=== PATIENT | female | born 1950 | race Caucasian/White ===

== ENCOUNTER 2019-04-06 11:11 | Emergency (ER) | payer OTHER, MEDICAID ==
[~2019-04-06] VITALS: Ht 157.5 cm; Wt 56.7 kg
[~2019-04-06 11:11] MED LIST: AMLO5TAB15 PO; ATEN50TA PO; BECL0.07 IN; CALC-317 PO; CHOL20007 PO; FERR-20 PO; GABA300C10 PO; PANT40TA2 PO; PERCOT PO; POTA10TA51 PO; VENL150C58 PO; VENL75CA3 PO
[2019-04-06] MEDS ORDERED: SODIUM CHLORIDE 0.9% 1,000 ML IV ONE ×2 (12:03→15:15)
[2019-04-06 12:54] LABS: Basophils # (auto) 0 uL; Basophils % (auto) 0.7 % (0.0-2.0); Eosinophils # (auto) 0 uL; Eosinophils % (auto) 0.1 % (0.0-7.0); Hematocrit 45.2 % (36.0-46.0); Hemoglobin 15.1 g/dL (12.2-16.2); Lymphocytes # (auto) 1.2 uL; Lymphocytes % (auto) 17.6 % (10.0-50.0); Mean Corpuscular Hemoglobin 31.6 pg (28.0-32.0); Mean Corpuscular Hgb Conc. 33.3 g/dL (32.0-36.0); Mean Corpuscular Volume 94.9 fL (80.0-100.0); Monocytes # (auto) 0.6 uL; Monocytes % (auto) 8.8 % (0.0-12.0); Neutrophils # (auto) 5.1 uL; Neutrophils % (auto) 72.8 % (37.0-80.0); Nucleated Red Blood Cells % 0.1 %; Platelet Count (auto) 216 10^3/uL (140-450); Red Blood Cells 4.77 10^6/uL (4.0-5.20); Red Cell Distribution Width 13.7 % (11.8-14.3)
[2019-04-06 14:44] LABS: Urine Bacteria NONE SEEN /hpf (None Seen); Urine Blood Negative /uL (Negative); Urine Specific Gravity 1.018 (1.001-1.035); Urine WBC 2 /hpf (0 - 5)
[2019-04-06 14:56] LABS: Calcium 8.5 mg/dL (8.5-10.1)
[2019-04-06 14:59] LABS: Alcohol, Urine < 3.0 mg/dL (0-5); Amphetamine Screen, Urine NEGATIVE (NEGATIVE); Barbiturate Scree,Urine NEGATIVE (NEGATIVE); Benzodiazephine Screen, Urine NEGATIVE (NEGATIVE); Cannabinoid Screen, Urine NEGATIVE (NEGATIVE); Cocaine Screen, Urine NEGATIVE (NEGATIVE); Opiate Scree,Urine NEGATIVE (NEGATIVE); Phencyclidine Screen, Urine NEGATIVE (NEGATIVE)
[2019-04-06 15:04] LABS: Albumin 3.3 g/dL (3.4-5.0); Total Protein 7.3 g/dL (6.4-8.2)
[2019-04-06 15:10] LABS: Potassium 2.6 mmol/L (3.5-5.1)
[2019-04-06 15:12] LABS: Anion Gap 10.3 (5-15)
[2019-04-06] MEDS ORDERED: POTASSIUM CHL 20 Meq TABLET PO ONE (15:15)
[2019-04-06] MEDS: POTASSIUM CHL 20MEQ/100ML 100 ML IV SCH ×2 (16:05→18:13)
[2019-04-06] MEDS ORDERED: POTASSIUM CHL 20MEQ/100ML 100 ML IV ONE (16:15)
[2019-04-06] MEDS ORDERED: CAR25T PO (16:28)
[2019-04-06] MEDS ORDERED: PANTOPRAZOLE 40 MG TAB PO SCH (17:00)
[2019-04-06] MEDS ORDERED: CALCIUM W/VIT D (600MG/400IU) TAB PO SCH (18:00)
[2019-04-06] MEDS ORDERED: FERROUS SULFATE 325 MG TAB PO SCH (18:00)
[2019-04-06 19:06] VITALS: BP 158/67
[2019-04-06] MEDS ORDERED: BECLOMETHASONE DIPROPIONATE 40 MCG IN SCH (22:00)
[2019-04-07] MEDS ORDERED: ATENOLOL 50 MG TAB PO SCH (10:00)
[2019-04-07] MEDS ORDERED: VENLAFAXINE HCL 37.5mg XR cap PO SCH (10:00)
[2019-04-07] MEDS ORDERED: CHOLECALCIFEROL (VITD3) 1,000IU=25mCg TAB PO SCH (10:00)
[2019-04-07] MEDS ORDERED: amLODIPine BESYLATE 5 MG TAB PO SCH (10:00)
--- NOTE | 2019-04-07 12:22 | NUR ---
Discharge planning per consult, patient has orders for Sukhdeep to arrange for SNF placement. Referral faxed to [facility] [phone]. Will follow up this afternoon on placement. Addendum: 04/09/19 at 1329 by HIMA KENNEDY Patient was accepted to [facility] [phone] into room [address] Ximena Downs.
== END 2019-04-06 19:08 | disposition home or self-care (01) ==
LOC: ER 11:11
DX: E87.6 Hypokalemia (principal); E86.0 Dehydration; R53.1 Weakness; R30.0 Dysuria; J45.909 Unspecified asthma, uncomplicated; E11.9 Type 2 diabetes mellitus without complications; K21.9 Gastro-esophageal reflux disease without esophagitis; E78.5 Hyperlipidemia, unspecified; I10 Essential (primary) hypertension; Z88.8 Allergy status to other drugs, medicaments and biological substances
CPT/HCPCS: 36415; 70450; 71045; 72131; 80053; 80307; 81001; 84132; 84484; 85025; 96361; 96365; 96366; 99285; J3480

== ENCOUNTER 2024-02-13 17:05 | Emergency (ER) | payer OTHER, MEDICAID ==
[~2024-02-13] VITALS: Ht 152.4 cm; Wt 45.5 kg
[~2024-02-13 17:05] MED LIST changes: +AMLO1TAB22 PO; -AMLO5TAB15 PO; +CAR25T PO; -FERR-20 PO; +FERR325T24 PO; +GABA-1250 PO; -GABA300C10 PO; +POTA-36 PO; -POTA10TA51 PO
--- NOTE | 2024-02-13 17:24 | ED.PDOC ---
History of Present Illness HPI Comments 73 y.o female with PMH of Parkinson's disease, presents to the ED via EMS for a chief complaint of generalized weakness x 1 month with new onset diffused abdominal pain x 1 day. Patient reports missing PCP appointment recently, states her Tremors have worsened since weakness presented and was advised to come into the hospital when trying to reschedule PCP's appointment. Patient denies any nausea, vomiting, diarrhea, fever or chills. Vital signs were stable on arrival. Time Seen by MD: 17:17 Primary Care Provider: DR. SNOWDEN Reviewed Notes: Nurses Notes, Medications, Allergies Allergies: Coded Allergies: Cortisone (Unverified Allergy, Intermediate, 03/16/15) Uncoded Allergies: IODINE CONTRAST (Allergy, Intermediate, 03/16/15) REDNESS, SWELLING Home Meds Active Scripts Levodopa W/Carbidopa (SINEMET 25/100MG) 1 Tab Tb, 1 TAB PO QID, #30 TAB Prov:JOSESITO WEST MD 04/06/19 Pantoprazole Sodium Sesquihydr (Protonix) 40 Mg Tab, 40 MG PO BIDAC, #60 TAB Prov:LASHAWN ABDUL MD 11/01/16 Reported Medications Gabapentin (Gabapentin) 300 Mg Cap, 300 MG PO TID, MG 10/29/16 Ferrous Sulfate (Ferrous Sulfate) 325 Mg Tab, 325 MG PO TIDWM 10/29/16 Venlafaxine Hydrochloride (Effexor Xr) 75 Mg Cap, 1 CAP PO DAILY, #30 CAP 10/29/16 Atenolol (Atenolol) 50 Mg Tab, 50 MG PO DAILY, MG 10/29/16 Amlodipine Besylate (Amlodipine Besylate) 5 Mg Tab, 2.5 MG PO DAILY, MG 10/29/16 Beclomethasone Dipropionate (Qvar) 40 Mcg Aer, 40 MCG IN BID, AER 10/29/16 Potassium Chloride (POTASSIUM CHLORIDE CR) 10 Meq Tb, 1 TAB PO DAILY, #30 TAB 5 Refills 10/29/16 Calcium Carbonate-Cholecalcife (OYSCO 500+D) Chw, 1 TAB PO TID, CHW 10/29/16 Venlafaxine Hcl (Venlafaxine Hcl Er) 150 Mg Cap, 1 CAP PO DAILY, #30 CAP 10/29/16 Cholecalciferol (VITAMIN D3) 2,000 Unit Tab, 1 TAB PO DAILY, #30 TAB 5 Refills 10/29/16 Oxycodone W/ Acetaminophen (Percocet 5/325MG) 1 Tab Tb, 1 TAB PO TID, #90 TAB 10/29/16 Information Source: Patient Mode of Arrival: EMS Severity: Moderate Timing: Hours Duration: Since onset Past Medical History PAST MEDICAL HISTORY: Anemia, Anxiety, Asthma, Depression, DM, GERD, High Lipids, HTN Surgical History: Cholecystectomy, Hysterectomy 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 Family History Family History: Family hx of Cancer Social History Smoker: Non-Smoker Alcohol: Denies ETOH Use Drugs: Denies Drug Use Lives In: Home Constitutional: reports: weakness; denies: chills, diaphoresis, fatigue, fever, malaise, sweats, others EENTM: denies: blurred vision, double vision, ear bleeding, ear discharge, ear drainage, ear pain, ear ringing, eye pain, eye redness, hearing loss, mouth pain, mouth swelling, nasal discharge, nose bleeding, nose congestion, nose pain, photophobia, tearing, throat pain, throat swelling, voice changes, others Respiratory: denies: cough, hemoptysis, orthopnea, SOB at rest, shortness of breath, SOB with excertion, stridor, wheezing, others Cardiovascular: denies: chest pain, dizzy spells, diaphoresis, Dyspnea on exertion, edema, irregular heart beat, left arm pain, lightheadedness, palpitations, PND, syncope, others Gastrointestinal: reports: abdominal pain; denies: abdomen distended, blood streaked bowels, constipated, diarrhea, dysphagia, difficulty swallowing, hematemesis, melena, nausea, poor appetite, poor fluid intake, rectal bleeding, rectal pain, vomiting, others Genitourinary: denies: abnormal vagina bleeding, burning, dyspareunia, dysuria, flank pain, frequency, hematuria, incontinence, pain, , vagina discharge, urgency, others Neurological: denies: dizziness, fainting, headache, left sided numbness, left sided weakness, numbness, paresthesia, pre-existing deficit, right sided numbness, right sided weakness, seizure, speech problems, tingling, tremors, weakness, others Musculoskeletal: reports: others (Progressive movement disorder due to Parkinson's.); denies: back pain, gout, joint pain, joint swelling, muscle pain, muscle stiffness, neck pain Integumetry: denies: bruises, change in color, change in hair/nails, dryness, laceration, lesions, lumps, rash, wounds, others Allergic/Immunocompromised: denies: Difficulty Healing, Frequent Infections, Hives, Itching, others Hematologic/Lymphatic: denies: anemia, blood clots, easy bleeding, easy bruising, swollen glands, others Endocrine: denies: excessive hunger, excessive sweating, excessive thirst, excessive urination, flushing, intolerance to cold, intolerance to heat, unexplained weight gain, unexplained weight loss, others Psychiatric: denies: anxiety, bipolar disorder, depression, hopeless, panic disorder, schizophrenia, sleepless, suicidal, others All Other Systems: Reviewed and Negative Physical Exam General Appearance: Moderate Distress HEENT: Normal ENT Inspection, Pharynx Normal, TMs Normal Neck: Full Range of Motion, Non-Tender, Normal, Normal Inspection Respiratory: Chest Non-Tender, Lungs Clear, No Accessory Muscle Use, No Respiratory Distress, Normal Breath Sounds Cardiovascular: No Edema, No JVD, No Murmur, No Gallop, Normal Peripheral Pul ses, Regular Rate/Rhythm Breast Exam: Deferred Gastrointestinal: No Organomegaly, Non Tender, No Pulsatile Mass, Normal Bowel Sounds, Soft Genitalia: Deferred Pelvic: Deferred Rectal: Deferred Extremities: No calf tenderness, Normal capillary refill, Non-tender, No pedal edema, Other (Patient displays parkinsonian tremors.) Musculoskeletal : Apperance: Normal Neurologic: Alert, Normal Mood, Other (Parkinson induced tremors ) Cerebellar Function: NOT DONE Reflexes: NOT DONE Skin: Dry, Normal Color, Warm Lymphatic: No Adenopathy Was a procedure done? Was a procedure done?: No Differential Dx Considerations may include: Dehydration, electrolyte imbalance, viral syndrome, URI, failure to thrive X-Ray, Labs, Meds, VS Vital Signs Date Time Temp Pulse Resp B/P (MAP) Pulse Ox O2 Delivery O2 Flow Rate FiO2 02/13/24 22:46 199/90 02/13/24 22:07 82 16 199/90 (126) 98 02/13/24 21:28 80 16 95 Room Air* 0 21 02/13/24 21:22 196/89 02/13/24 21:15 98.5 80 16 196/89 (124) 95 98.5 02/13/24 17:32 98.0 85 22 118/65 (82) 100 Lab Test 02/14/24 01:40 02/13/24 18:07 Range/Units Urine Color Yellow Yellow Urine Clarity Clear Clear Urine pH 7.0 5.0-9.0 Urine Specific [place] 1.019 1.001-1.035 Urine Protein Trace H Negative Urine Ketones 1+ H Negative Urine Blood Negative Negative /uL Urine Nitrite Negative Negative Urine Bilirubin Negative Negative Urine Urobilinogen Normal Negative mg/dL Urine Leukocyte Esterase Negative Negative /uL Urine RBC <1 0 - 4 /hpf Urine WBC 5 0 - 5 /hpf Urine Squamous Epithelial Cells Few <5 /hpf Urine Bacteria None seen None Seen /hpf Urine Glucose Normal Normal mg/dL White Blood Count 4.2 L 4.4-10.8 10^3/uL Red Blood Count 4.03 4.0-5.20 10^6/uL Hemoglobin 12.9 12.2-16.2 g/dL Hematocrit 38.3 36.0-46.0 % Mean Corpuscular Volume 95.0 80.0-100.0 fL Mean Corpuscular Hemoglobin 31.9 28.0-32.0 pg Mean Corpuscular Hemoglobin Concent 33.6 32.0-36.0 g/dL Red Cell Distribution Width 14.1 11.8-14.3 % Platelet Count 212 140-450 10^3/uL Mean Platelet Volume 7.9 6.9-10.8 fL Neutrophils (%) (Auto) 53.6 37.0-80.0 % Lymphocytes (%) (Auto) 30.2 10.0-50.0 % Monocytes (%) (Auto) 9.3 0.0-12.0 % Eosinophils (%) (Auto) 5.9 0.0-7.0 % Basophils (%) (Auto) 1.0 0.0-2.0 % Neutrophils # (Auto) 2.2 1.6-8.6 10 ^3/uL Lymphocytes # (Auto) 1.3 0.4-5.4 10 ^3/uL Monocytes # (Auto) 0.4 0-1.3 10 ^3/uL Eosinophils # (Auto) 0.2 0-0.8 10 ^3/uL Basophils # (Auto) 0 0-0.2 10 ^3/uL Nucleated Red Blood Cells 0.0 % Sodium Level 140 136-145 mmol/L Potassium Level 3.2 L 3.5-5.1 mmol/L Chloride Level 103 98-107 mmol/L Carbon Dioxide Level 28 20-31 mmol/L Anion Gap 9 5-15 Blood Urea Nitrogen 13 9-23 mg/dL Creatinine 0.81 0.550-1.02 mg/dL Glomerular Filtration Rate Calc 76 >90 mL/min BUN/Creatinine Ratio 16.0 10.0-20.0 Serum Glucose 108 H 74-106 mg/dL Calcium Level 9.9 8.7-10.4 mg/dL Total Bilirubin 0.9 0.2-1.0 mg/dL Aspartate Amino Transferase (AST) 37 13-40 U/L Alanine Aminotransferase (ALT) < 9 7-40 U/L Alkaline Phosphatase 98 46-116 U/L Troponin I High Sensitivity 5 </=34 ng/L B-Type Natriuretic Peptide 102.06 0-100 pg/mL Total Protein 6.8 5.7-8.2 g/dL Albumin 4.1 3.2-4.8 g/dL Lipase 19 12-53 U/L Current Medications Medications (Trade) Dose Ordered Sig/Marie Route Start Time Stop Time Status Last Admin Dicyclomine HCl (Bentyl Injection) 20 mg ONCE ONCE IM 02/13/24 17:30 02/13/24 17:31 DC 02/13/24 21:21 Clonidine HCl (Catapres Tablet) 0.1 mg ONCE ONCE PO 02/13/24 21:15 02/13/24 21:16 DC 02/13/24 21:22 Clonidine HCl (Catapres Tablet) 0.2 mg ONCE ONCE PO 02/13/24 22:08 02/13/24 22:09 DC 02/13/24 22:46 X-Ray, Labs, Meds, VS Comment All studies performed the ED today were evaluated by me personally. Serum laboratories were unremarkable for any acute process. Urine was pending at time of this note. This patient does not appear to be in good overall health and needs to be aided in an assisted living facility. Patient's blood pressure is not well controlled and the patient has global chronic pain concerns as well as her progressing Parkinson's. Unfortunately, this patient's insurance is [employer] and therefore, patient will be discharged and advised to follow up with her insurance for any assistance she can receive. Time of 1ST Reevaluation: 02:19 Reevaluation 1ST: Unchanged Consultation: PCP, Neurology Patient Education/Counseling: Diagnosis, Treatment, Prognosis Family Education/Counseling: Diagnosis, Treatment, No Family Present Departure 1 Departure Time of Disposition: 02:19 Impression: Primary Impression: Hypertensive urgency Additional Impressions: Failure to thrive Parkinsons Disposition: 01 HOME / SELF CARE / HOMELESS Condition: Stable Additional Instructions: Advised patient utilize home medications as directed and follow up with her insurance for investigation into long-term care. Discharged With: Self, Friend Critical Care Note Critical Care Time?: No Stability Stability form required: No I personally scribed for VALERIANO JONES PAC ([email or web address]) on 02/13/24 at 17:24. Electronically submitted by Kathy Piedra ([facility]). VALERIANO JONES PAC Feb 13, 2024 17:24
[2024-02-13 18:25] LABS: Basophils # (auto) 0 10 ^3/uL (0-0.2); Eosinophils # (auto) 0.2 10 ^3/uL (0-0.8); Eosinophils % (auto) 5.9 % (0.0-7.0); Hematocrit 38.3 % (36.0-46.0); Hemoglobin 12.9 g/dL (12.2-16.2); Lymphocytes # (auto) 1.3 10 ^3/uL (0.4-5.4); Lymphocytes % (auto) 30.2 % (10.0-50.0); Mean Corpuscular Hemoglobin 31.9 pg (28.0-32.0); Mean Corpuscular Hgb Conc. 33.6 g/dL (32.0-36.0); Monocytes # (auto) 0.4 10 ^3/uL (0-1.3); Monocytes % (auto) 9.3 % (0.0-12.0); Neutrophils # (auto) 2.2 10 ^3/uL (1.6-8.6); Neutrophils % (auto) 53.6 % (37.0-80.0); Platelet Count (auto) 212 10^3/uL (140-450); Red Blood Cells 4.03 10^6/uL (4.0-5.20); Red Cell Distribution Width 14.1 % (11.8-14.3); White Blood Cell 4.2 10^3/uL (4.4-10.8)
[2024-02-13 18:37] LABS: Albumin 4.1 g/dL (3.2-4.8); Alkaline Phosphatase 98 U/L (46-116); Anion Gap 9 (5-15); Aspartate Aminotransferase 37 U/L (13-40); Bilirubin, Total 0.9 mg/dL (0.2-1.0); Blood Urea Nitrogen 13 mg/dL (9-23); Calcium 9.9 mg/dL (8.7-10.4); Carbon Dioxide 28 mmol/L (20-31); Chloride 103 mmol/L (98-107); Sodium 140 mmol/L (136-145)
[2024-02-13 18:38] LABS: Total Protein 6.8 g/dL (5.7-8.2)
[2024-02-13 18:40] LABS: Alanine Aminotransferase < 9 U/L (7-40); Glucose 108 mg/dL (74-106); Potassium 3.2 mmol/L (3.5-5.1)
[2024-02-13 19:06] LABS: Lipase 19 U/L (12-53)
[2024-02-13 21:15] VITALS: TEMP 98.5
[2024-02-13] MEDS: DICYCLOMINE HCL (10MG/ML) 2 ML AMPULE IM ONE (21:21)
[2024-02-13] MEDS: cloNIDine HCL 0.1 MG TAB PO ONE ×3 (21:22→22:46)
[2024-02-13 21:28] VITALS: PULSE 80; RESP 16; O2SAT 95
[2024-02-14 01:41] LABS: Urine Bacteria None Seen /hpf (None Seen)
[2024-02-14 02:01] LABS: Urine Blood Negative /uL (Negative); Urine Clarity Clear (Clear); Urine Color Yellow (Yellow); Urine Protein, UAD TRACE (Negative); Urine Specific Gravity 1.019 (1.001-1.035); Urine Squamous Epithelial Cell FEW /hpf (<5); Urine Urobilinogen Normal (Negative); Urine WBC 5 /hpf (0 - 5)
[2024-02-14 03:32] VITALS: BP 146/90
[2024-02-14 03:36] VITALS: PULSE 81; RESP 12; O2SAT 97
[2024-02-14] MEDS: HYDROcodone-ACET 10/325MG TAB PO ONE (03:36)
== END 2024-02-14 03:37 | disposition home or self-care (01) ==
LOC: EDBD 17:05 → ER 17:05
DX: I16.0 Hypertensive urgency (principal); G20.A1 Parkinson's disease without dyskinesia, without mention of fluctuations; R62.7 Adult failure to thrive; E11.9 Type 2 diabetes mellitus without complications; K21.9 Gastro-esophageal reflux disease without esophagitis; E78.5 Hyperlipidemia, unspecified; F41.9 Anxiety disorder, unspecified; F32.A Depression, unspecified; J45.909 Unspecified asthma, uncomplicated; Z86.2 Personal history of diseases of the blood and blood-forming organs and certain disorders involving the immune mechanism; Z90.49 Acquired absence of other specified parts of digestive tract; Z90.710 Acquired absence of both cervix and uterus; Z88.8 Allergy status to other drugs, medicaments and biological substances; Z79.51 Long term (current) use of inhaled steroids; Z79.899 Other long term (current) drug therapy
CPT/HCPCS: 36415; 80053; 81001; 83690; 83880; 84484; 85025; 96372; 99284; J0500

== ENCOUNTER 2024-02-17 16:19 | Emergency (ER) | payer OTHER, MEDICAID ==
[~2024-02-17] VITALS: Ht 154.9 cm; Wt 59.0 kg
[2024-02-17 16:36] VITALS: BP 199/87; PULSE 80; RESP 22; O2SAT 99
[2024-02-17 17:13] LABS: Basophils # (auto) 0 10 ^3/uL (0-0.2); Basophils % (auto) 1.3 % (0.0-2.0); Eosinophils # (auto) 0.2 10 ^3/uL (0-0.8); Eosinophils % (auto) 7.2 % (0.0-7.0); Hematocrit 37.2 % (36.0-46.0); Hemoglobin 12.4 g/dL (12.2-16.2); Lymphocytes # (auto) 1.3 10 ^3/uL (0.4-5.4); Lymphocytes % (auto) 37.9 % (10.0-50.0); Mean Corpuscular Hemoglobin 31.8 pg (28.0-32.0); Mean Corpuscular Hgb Conc. 33.4 g/dL (32.0-36.0); Mean Corpuscular Volume 95.3 fL (80.0-100.0); Monocytes # (auto) 0.3 10 ^3/uL (0-1.3); Monocytes % (auto) 7.7 % (0.0-12.0); Neutrophils # (auto) 1.6 10 ^3/uL (1.6-8.6); Neutrophils % (auto) 45.9 % (37.0-80.0); Nucleated Red Blood Cells % 0.1 %; Platelet Count (auto) 215 10^3/uL (140-450); Red Cell Distribution Width 14.4 % (11.8-14.3); White Blood Cell 3.4 10^3/uL (4.4-10.8)
[2024-02-17 17:20] LABS: Chloride 105 mmol/L (98-107); Potassium 3.3 mmol/L (3.5-5.1); Sodium 140 mmol/L (136-145)
[2024-02-17 17:21] LABS: Anion Gap 7 (5-15); Calcium 9.9 mg/dL (8.7-10.4); Carbon Dioxide 28 mmol/L (20-31)
[2024-02-17 17:26] LABS: BUN/Creatinine Ratio 11.8 (10.0-20.0)
[2024-02-17 17:28] LABS: Blood Urea Nitrogen 8 mg/dL (9-23); Glucose 142 mg/dL (74-106)
--- NOTE | 2024-02-17 18:11 | DVH ---
CHEST RADIOGRAPH Indication: weakness Technique: Single frontal view of the chest was obtained COMPARISON: CHEST PORTABLE on DOS: 04/06/19 FINDINGS: Lines and Tubes: None Lungs: Right perihilar opacity may reflect chronic scarring although superimposed pneumonia is diffic ult to exclude Pleura: No effusion. No pneumothorax. Cardiomediastinal contours: Unremarkable Bones: Unremarkable IMPRESSION: 1. Right perihilar opacity may reflect chronic scarring although superimposed pneumonia is difficult to exclude
--- NOTE | 2024-02-17 18:56 | ED.PDOC ---
HPI Comments 73y F who presents to the ED via EMS for chief compliant of high blood pressure. Pt states she came to the ED for her hypertension and states she has been having palpitations and increased generalized weakness. Pt otherwise denies chest pain, shortness of breath, headache, dizziness, fever, cough or chills. Pt in no noted distress. Pt in the ED, has noted BP of 199/87 with 02 sat of 99% on room air. Pt otherwise denies any other symptoms at this time. Chief Complaint: High Blood Pressure Time Seen by MD: 18:52 Primary Care Provider: [id number] Reviewed Notes: Medications Allergies: Coded Allergies: Cortisone (Unverified Allergy, Intermediate, 03/16/15) Uncoded Allergies: IODINE CONTRAST (Allergy, Intermediate, 03/16/15) REDNESS, SWELLING Home Meds Active Scripts Levodopa W/Carbidopa (SINEMET 25/100MG) 1 Tab Tb, 1 TAB PO QID, #30 TAB Prov:JOSESITO WEST MD 04/06/19 Pantoprazole Sodium Sesquihydr (Protonix) 40 Mg Tab, 40 MG PO BIDAC, #60 TAB Prov:LASHAWN ABDUL MD 11/01/16 Reported Medications Gabapentin (Gabapentin) 300 Mg Cap, 300 MG PO TID, MG 10/29/16 Ferrous Sulfate (Ferrous Sulfate) 325 Mg Tab, 325 MG PO TIDWM 10/29/16 Venlafaxine Hydrochloride (Effexor Xr) 75 Mg Cap, 1 CAP PO DAILY, #30 CAP 10/29/16 Atenolol (Atenolol) 50 Mg Tab, 50 MG PO DAILY, MG 10/29/16 Amlodipine Besylate (Amlodipine Besylate) 5 Mg Tab, 2.5 MG PO DAILY, MG 10/29/16 Beclomethasone Dipropionate (Qvar) 40 Mcg Aer, 40 MCG IN BID, AER 10/29/16 Potassium Chloride (POTASSIUM CHLORIDE CR) 10 Meq Tb, 1 TAB PO DAILY, #30 TAB 5 Refills 10/29/16 Calcium Carbonate-Cholecalcife (OYSCO 500+D) Chw, 1 TAB PO TID, CHW 10/29/16 Venlafaxine Hcl (Venlafaxine Hcl Er) 150 Mg Cap, 1 CAP PO DAILY, #30 CAP 10/29/16 Cholecalciferol (VITAMIN D3) 2,000 Unit Tab, 1 TAB PO DAILY, #30 TAB 5 Refills 10/29/16 Oxycodone W/ Acetaminophen (Percocet 5/325MG) 1 Tab Tb, 1 TAB PO TID, #90 TAB 10/29/16 Information Source: Patient Mode of Arrival: Ambulatory Past Medical History PAST MEDICAL HISTORY: Anemia, Anxiety, Asthma, Depression, DM, GERD, High Lipids, HTN Surgical History: Cholecystectomy, Hysterectomy 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 Family History Family History: Family hx of Cancer Social History Smoker: Non-Smoker Alcohol: Denies ETOH Use Drugs: Denies Drug Use Lives In: Home Constitutional: reports: malaise, weakness; denies: chills, diaphoresis, fatigue, fever, sweats, others EENTM: denies: blurred vision, double vision, ear bleeding, ear discharge, ear drainage, ear pain, ear ringing, eye pain, eye redness, hearing loss, mouth pain, mouth swelling, nasal discharge, nose bleeding, nose congestion, nose pain, photophobia, tearing, throat pain, throat swelling, voice changes, others Respiratory: denies: cough, hemoptysis, orthopnea, SOB at rest, shortness of breath, SOB with excertion, stridor, wheezing, others Cardiovascular: reports: palpitations; denies: chest pain, dizzy spells, diaphoresis, Dyspnea on exertion, edema, irregular heart beat, left arm pain, lightheadedness, PND, syncope, others Gastrointestinal: denies: abdomen distended, abdominal pain, blood streaked bowels, constipated, diarrhea, dysphagia, difficulty swallowing, hematemesis, melena, nausea, poor appetite, poor fluid intake, rectal bleeding, rectal pain, vomiting, others Genitourinary: denies: abnormal vagina bleeding, burning, dyspareunia, dysuria, flank pain, frequency, hematuria, incontinence, pain, , vagina discharge, urgency, others Neurological: denies: dizziness, fainting, headache, left sided numbness, left sided weakness, numbness, paresthesia, pre-existing deficit, right sided numbness, right sided weakness, seizure, speech problems, tingling, tremors, weakness, others Musculoskeletal: denies: back pain, gout, joint pain, joint swelling, muscle pain, muscle stiffness, neck pain, others Integumetry: denies: bruises, change in color, change in hair/nails, dryness, laceration, lesions, lumps, rash, wounds, others Allergic/Immunocompromised: denies: Difficulty Healing, Frequent Infections, Hives, Itching, others Hematologic/Lymphatic: denies: anemia, blood clots, easy bleeding, easy bruising, swollen glands, others Endocrine: denies: excessive hunger, excessive sweating, excessive thirst, excessive urination, flushing, intolerance to cold, intolerance to heat, unexplained weight gain, unexplained weight loss, others Psychiatric: denies: anxiety, bipolar disorder, depression, hopeless, panic disorder, schizophrenia, sleepless, suicidal, others All Other Systems: Reviewed and Negative Physical Exam General Appearance: Other (Likely ill-appearing) HEENT: None Neck: Full Range of Motion, Non-Tender, Normal, Normal Inspection Respiratory: No Respiratory Distress Cardiovascular: No Edema Breast Exam: Deferred Gastrointestinal: Non Tender Genitalia: Deferred Pelvic: Deferred Rectal: Deferred Extremities: Non-tender Neurologic: Normal Mood Cerebellar Function: NOT DONE Reflexes: NOT DONE Skin: Dry, Normal Color, Warm Lymphatic: No Adenopathy Was a procedure done? Was a procedure done?: No CP Differential Dx Differential Diagnosis: A-fib, A-Flutter, Angina, Anxiety / Panic Attack, Atrial Dysrhythmia Differential Diagnosis: HTN Essential, HTN Accelerated, HTN Encephalopathy, Medical NonCompliance Differential Diagnosis: Chest Wall Pain, Costochondritis X-Ray, Labs, Meds, VS Vital Signs Date Time Temp Pulse Resp B/P (MAP) Pulse Ox O2 Delivery O2 Flow Rate FiO2 02/17/24 16:36 99.0 80 22 199/87 (124) 99 Lab Test 02/17/24 16:55 Range/Units White Blood Count 3.4 L 4.4-10.8 10^3/uL Red Blood Count 3.90 L 4.0-5.20 10^6/uL Hemoglobin 12.4 12.2-16.2 g/dL Hematocrit 37.2 36.0-46.0 % Mean Corpuscular Volume 95.3 80.0-100.0 fL Mean Corpuscular Hemoglobin 31.8 28.0-32.0 pg Mean Corpuscular Hemoglobin Concent 33.4 32.0-36.0 g/dL Red Cell Distribution Width 14.4 H 11.8-14.3 % Platelet Count 215 140-450 10^3/uL Mean Platelet Volume 7.8 6.9-10.8 fL Neutrophils (%) (Auto) 45.9 37.0-80.0 % Lymphocytes (%) (Auto) 37.9 10.0-50.0 % Monocytes (%) (Auto) 7.7 0.0-12.0 % Eosinophils (%) (Auto) 7.2 H 0.0-7.0 % Basophils (%) (Auto) 1.3 0.0-2.0 % Neutrophils # (Auto) 1.6 1.6-8.6 10 ^3/uL Lymphocytes # (Auto) 1.3 0.4-5.4 10 ^3/uL Monocytes # (Auto) 0.3 0-1.3 10 ^3/uL Eosinophils # (Auto) 0.2 0-0.8 10 ^3/uL Basophils # (Auto) 0 0-0.2 10 ^3/uL Nucleated Red Blood Cells 0.1 % Sodium Level 140 136-145 mmol/L Potassium Level 3.3 L 3.5-5.1 mmol/L Chloride Level 105 98-107 mmol/L Carbon Dioxide Level 28 20-31 mmol/L Anion Gap 7 5-15 Blood Urea Nitrogen 8 L 9-23 mg/dL Creatinine 0.68 0.550-1.02 mg/dL Glomerular Filtration Rate Calc 91 >90 mL/min BUN/Creatinine Ratio 11.8 10.0-20.0 Serum Glucose 142 H 74-106 mg/dL Calcium Level 9.9 8.7-10.4 mg/dL Troponin I High Sensitivity 6 </=34 ng/L B-Type Natriuretic Peptide 70.98 0-100 pg/mL [place] [id number] Ph: [phone] DIAGNOSTIC IMAGING Diagnostic Imaging Report : [id number] Signed PATIENT: ANA LUISA TAVERAS ACCT: [id number] UNIT: [id number] : 1950 LOC: ER ROOM / BED: / AGE / SEX: 73 / F ADM STATUS: REG ER SERVICE 1634 ORDERING PHYSICIAN: SHARATH MORTON MD PROCEDURE(s): CXRP - CHEST PORTABLE REASON: weakness ORDER NUMBER(s): [id number], ACCESSION NUMBER(s): [id number] CHEST RADIOGRAPH Indication: weakness Technique: Single frontal view of the chest was obtained COMPARISON: CHEST PORTABLE on DOS: 04/06/19 FINDINGS: Lines and Tubes: None Lungs: Right perihilar opacity may reflect chronic scarring although superimposed pneumonia is difficult to exclude Pleura: No effusion. No pneumothorax. Cardiomediastinal contours: Unremarkable Bones: Unremarkable IMPRESSION: 1. Right perihilar opacity may reflect chronic scarring although superimposed pneumonia is difficult to exclude ATED BY: JENNIFER العلي MD DICTATED DATE/TIME: 02/17/241808 SIGNED BY: JENNIFER العلي MD SIGNED DATE/TIME: 02/17/241808 CC: Time of 1ST Reevaluation: 19:30 Reevaluation 1ST: Unchanged Patient Education/Counseling: Diagnosis, Treatment Family Education/Counseling: Diagnosis, Treatment Additional Information - I reviewed the following notes from patient's past medical encounters: - The following tests were ordered, and results were reviewed by me: (Labs, X- Ray, EKG): BNP, BMP, CBC, troponin x1, UA , chest x-ray, EKG x 1 - Additional information was gathered from interviewing the following independent Historian: (Family, Other Providers, EMT): none - I reviewed and agreed with the following test results read by other provider: (X-ray, CT, US): radiologist - I discussed treatments and results with medical personnel and: (consultants, family): none Departure 1 Departure Time of Disposition: 20:53 (Patient with worsening weakness and hypertension. Patient is refusing to be admitted we will sign out AMA.) Impression: Primary Impression: HTN (hypertension) Qualified Codes: I10 - Essential (primary) hypertension Additional Impression: Generalized weakness Disposition: 07 LEFT AGAINST MEDICAL ADVICE Condition: Serious Critical Care Note Critical Care Time?: No Stability Stability form required: No Heart Score Heart Score: Heart Score Response (Comments) Value History Moderate Suspicious 1 EKG Repolarization Disturb 1 Age >65 2 Risk Factors >3 or Hx ASHD 2 Troponin Normal limit 0 Total 6 I personally scribed for SHARATH MORTON MD ([email or web address]) on 02/17/24 at 18:56. Electronically submitted by Emma Sibley ([email or web address]). SHARATH MORTON MD Feb 17, 2024 18:56
[2024-02-17] MEDS ORDERED: cloNIDine HCL 0.1 MG TAB PO ONE (21:45)
== END 2024-02-17 21:59 | disposition left against medical advice (07) ==
LOC: ER 16:19 → EDBD 16:19 → EDUNIT# 16:19 → ER 21:59
DX: R53.1 Weakness (principal); R00.2 Palpitations; I10 Essential (primary) hypertension; E11.9 Type 2 diabetes mellitus without complications; F32.A Depression, unspecified; F41.9 Anxiety disorder, unspecified; J45.909 Unspecified asthma, uncomplicated; K21.9 Gastro-esophageal reflux disease without esophagitis; Z90.49 Acquired absence of other specified parts of digestive tract; Z90.710 Acquired absence of both cervix and uterus; Z79.51 Long term (current) use of inhaled steroids; Z79.899 Other long term (current) drug therapy; Z88.8 Allergy status to other drugs, medicaments and biological substances; Z91.041 Radiographic dye allergy status
CPT/HCPCS: 36415; 71045; 80048; 83880; 84484; 85025